=== PATIENT | female | born 1995 | race Caucasian/White ===

== ENCOUNTER 2017-09-21 19:47 | Emergency (ER) | payer OTHER ==
[2017-09-21] MEDS: NS 0.9% 1000 ML* 2,000 ML IV ONE ×2 (20:32→22:33)
--- NOTE | 2017-09-21 20:33 | RAD ---
INDICATION: Cough. COMPARISON: There are no prior studies available for comparison. TECHNIQUE: Dual-energy PA and lateral views of the chest were obtained. FINDINGS: The heart is within normal limits in size. Mediastinal and hilar contours appear within normal limits. The lungs are clear. No pleural effusion is present. IMPRESSION: NO EVIDENCE FOR ACTIVE CARDIOPULMONARY DISEASE.
[2017-09-21 20:51] LABS: ABS Basophils 0 10^3/ul (0-0.2); ABS Eosinophils 0 10^3/ul (0-0.6); ABS Neutrophils 3.9 10^3/ul (1.5-7.7); ABS Nucleated RBC 0 10^3/ul; Eosinophil % 0.2 % (0-6); Hematocrit 41 % (35-47); Lymphocyte % 16.9 % (25-47); Mean Corpuscular HGB Conc 34 g/dl (31-36); Mean Corpuscular Hemoglobin 28 pg (27-31); Mean Corpuscular Volume 83 fL (80-97); Mean Platelet Volume 8 um3 (7.4-10.4); Nucleated Red Blood Cells % 0.1; Platelet Count 282 10^3/ul (150-450); Red Cell Distribution Width 13 % (10.5-15); White Blood Count 5.9 10^3/ul (3.5-10.8)
--- NOTE | 2017-09-21 20:54 | ED ---
Influenza-Like Illness - HPI Summary HPI Summary: 21-year-old female presents with fever since yesterday. She states she has been having cough for the past 5 days. She admits to headache and generalized body aches. She denies any neck stiffness. She denies any photophobia. She admits to dizziness. She is no blurry vision. She has been taking ibuprofen and Tylenol for her pain. She states to shortness of breath but denies chest pain. She has no history of respiratory illness. She denies any nausea or vomiting. She denies any abdominal pain. She was seen at [facility] and they gave her oral fluids and doxycycline. This transferred her here due to vitals. - History of Current Complaint Chief Complaint: EDFever Time Seen by Provider: 09/21/17 19:58 - Allergy/Home Medications Allergies/Adverse Reactions: Allergies Allergy/AdvReac Type Severity Reaction Status Date / Time iodine Allergy See Comment Uncoded 09/21/17 21:35 PMH/Surg Hx/FS Hx/Imm Hx Endocrine/Hematology History: Denies: Hx Anticoagulant Therapy Respiratory History: Reports: Other Respiratory Problems/Disorders - PNA Denies: Hx Asthma Infectious Disease History: No Infectious Disease History: Denies: Traveled Outside the [place] in Last 30 Days - Family History Known Family History: Negative: Respiratory Disease - Social History Alcohol Use: None Substance Use Type: Reports: None Smoking Status (MU): Never Smoked Tobacco Review of Systems Positive: Fever, Chills, Fatigue Positive: Sore Throat, Nasal Discharge Negative: Chest Pain Positive: Shortness Of Breath, Cough Negative: Abdominal Pain All Other Systems Reviewed And Are Negative: Yes Physical Exam Triage Information Reviewed: Yes Vital Signs On Initial Exam: Initial Vitals BP 130/80 09/21/17 20:09 Vital Signs Reviewed: Yes Appearance: Positive: Ill-Appearing - nontoxic Skin: Positive: Warm, Dry Head/Face: Positive: Normal Head/Face Inspection Eyes: Positive: Normal, EOMI, DARSHANA, Conjunctiva Clear ENT: Positive: Normal ENT inspection, Pharyngeal erythema, TMs normal, Tonsillar swelling, Uvula midline, Other - soft palate symmetric. Negative: Tonsillar exudate, Trismus, Muffled voice Neck: Positive: Supple, Nontender, No Lymphadenopathy. Negative: Nuchal Rigidity Respiratory/Lung Sounds: Positive: Clear to Auscultation, Breath Sounds Present Cardiovascular: Positive: Normal, RRR Abdomen Description: Positive: Nontender, Soft Bowel Sounds: Positive: Present Musculoskeletal: Positive: Normal Neurological: Positive: Normal Psychiatric: Positive: Normal Diagnostics - Vital Signs Vital Signs Temp Pulse Resp BP Pulse Ox 09/21/17 20:26 120/83 09/21/17 20:20 121 23 96 09/21/17 20:10 97.8 F 135 17 127/64 98 09/21/17 20:09 130/80 - Laboratory Result Diagrams: 09/21/17 20:34 09/21/17 20:34 Lab Statement: Any lab studies that have been ordered have been reviewed, and results considered in the medical decision making process. - Radiology chest Xray Interpretation: No Acute Changes Radiology Interpretation Completed By: Radiologist Flu Symptom Course/Dx - Course Course Of Treatment: 21-year-old female presents with fever since yesterday. She states she has been having cough for the past 5 days. She admits to headache and generalized body aches. She denies any neck stiffness. She denies any photophobia. She admits to dizziness. She is no blurry vision. She has been taking ibuprofen and Tylenol for her pain. She states to shortness of breath but denies chest pain. She has no history of respiratory illness. She denies any nausea or vomiting. She denies any abdominal pain. She was seen at [facility] and they gave her oral fluids and doxycycline. This transferred her here due to vitals. On exam lungs clear to auscultation. Tachycardic. Hearing is air in the abdomen is with +1 tonsils without exudate. Uvula is midline. Soft palate symmetric. Abdomen soft nontender. Strep negative. Labs within normal limits. Gave 3 liters of fluid the patient feeling better. Patient is still slightly tachycardic but this is likely due to patient likely having the flu. Chest x-ray normal. Discharge with decadron for sore throat. Told to continue Tylenol or ibuprofen. Patient understands and agrees. - Diagnoses Differential Diagnosis/HQI/PQRI: Positive: Influenza, Pneumonia, Other - strept Provider Diagnoses: Febrile illness Discharge - Discharge Plan Condition: Good Disposition: HOME Prescriptions: Dexamethasone TAB* [Decadron TAB*] 4 mg PO DAILY #4 tab Magic Mouth Was-CARMEL/MAAL/LIDO* 5 ml SWISH SPIT QID #100 ml Patient Education Materials: Influenza (ED) Forms: *School Release Referrals: [facility] - Clint MEZA [Primary Care Provider] - Additional Instructions: symptoms like due to the flu Magic mouthwash 5ml swish and spit can use 4x a day Take steroid once a day for 4 days Take Tylenol or ibuprofen for pain/fever every 6 hours Use saline spray in nose as much as needed for nasal congestion Use humidifier in room or can use warm water in bowls for cough Can gargle salt water Can use cough drops or products such as cloraseptic spray Return to ED if develop any new or worsening symptoms
[2017-09-21 21:25] LABS: EGFR Non-African American 104.3 (>60)
[2017-09-21] MEDS ORDERED: Dexamethasone TAB* 4 MG PO ONE (21:57)
[2017-09-21] MEDS ORDERED: NS 0.9% 1000 ML* 1,000 ML IV ONE (21:57)
[2017-09-21 23:47] VITALS: BP 130/80
== END 2017-09-21 23:47 | disposition home or self-care (01) ==
LOC: ED 19:47
DX: R50.9 Fever, unspecified (principal); Z88.8 Allergy status to other drugs, medicaments and biological substances
CPT/HCPCS: 36415; 71046; 80053; 85025; 87651; 96360; 96361; 99283; J8540

== ENCOUNTER 2017-09-23 04:21 | Emergency (ER) | payer OTHER ==
[2017-09-23] MEDS ORDERED: Ondansetron INJ* 2 MG/ML VIAL IV ONE (05:03)
[2017-09-23] MEDS ORDERED: Ketorolac INJ* 30 MG/ML 1 ML VIAL IV ONE (05:03)
[2017-09-23 05:33] LABS: ABS Basophils 0 10^3/ul (0-0.2); ABS Eosinophils 0 10^3/ul (0-0.6); ABS Lymphocytes 0.9 10^3/ul (1.0-4.8); ABS Monocytes 0.8 10^3/ul (0-0.8); ABS Neutrophils 4.5 10^3/ul (1.5-7.7); ABS Nucleated RBC 0 10^3/ul; Eosinophil % 0 % (0-6); Hematocrit 39 % (35-47); Hemoglobin 13.2 g/dl (12.0-16.0); Mean Corpuscular HGB Conc 34 g/dl (31-36); Mean Corpuscular Hemoglobin 28 pg (27-31); Mean Corpuscular Volume 82 fL (80-97); Mean Platelet Volume 8 um3 (7.4-10.4); Nucleated Red Blood Cells % 0; Platelet Count 296 10^3/ul (150-450); Red Blood Count 4.69 10^6/ul (4.0-5.4); Red Cell Distribution Width 13 % (10.5-15); White Blood Count 6.3 10^3/ul (3.5-10.8)
[2017-09-23] MEDS: NS 0.9% 1000 ML* 3,000 ML IV ONE ×2 (05:44→06:14)
[2017-09-23 05:55] LABS: INR 1.05 (0.77-1.02)
[2017-09-23 05:56] LABS: EGFR Non-African American 128.8 (>60)
--- NOTE | 2017-09-23 07:11 | ED ---
Elif Whitmore Thomas, scribed for Davin Rodríguez MD on 09/23/17 at 0457 . Complex/Multi-Sys Presentation - HPI Summary HPI Summary: The patient is a 21 year old female presenting with nausea, vomiting, diarrhea, shortness of breath, lightheadedness, blurry vision, and shakiness that began tonight. She was evaluated at [facility] ED yesterday with flu-like symptoms, including a headache, neck pain, and body aches. She has been taking the Decadron, Peptobismol, and magic mouth wash prescribed yesterday. - History Of Current Complaint Chief Complaint: EDNauseaVomitDiarrh Time Seen by Provider: 09/23/17 04:44 Hx Obtained From: Patient Onset/Duration: Still Present Timing: Constant Severity Currently: Moderate Severity Initially: Moderate Aggravating Factor(s): None Alleviating Factor(s): Prescribed meds Associated Signs And Symptoms: Positive: Other - nausea, vomiting, diarrhea, shortness of breath, lightheadedness, blurry vision, shakiness, headache, neck pain, and body aches - Allergies/Home Medications Allergies/Adverse Reactions: Allergies Allergy/AdvReac Type Severity Reaction Status Date / Time garlic Allergy Unknown Hives Verified 09/23/17 06:22 Iodinated Contrast- Oral and Allergy Unknown Unknown Verified 09/23/17 06:19 IV Dye Reaction Details iodine Allergy Unknown See Comment Verified 09/23/17 06:19 lactose Allergy Unknown GI Upset Verified 09/23/17 06:22 Latex, Natural Rubber Allergy Unknown Hives Verified 09/23/17 06:19 lidocaine Allergy Unknown Anaphylatic Verified 09/23/17 06:19 Shock red dye AdvReac Unknown Dizziness Verified 09/23/17 06:19 PMH/Surg Hx/FS Hx/Imm Hx Endocrine/Hematology History: Denies: Hx Anticoagulant Therapy Respiratory History: Reports: Other Respiratory Problems/Disorders - PNA Denies: Hx Asthma Infectious Disease History: No Infectious Disease History: Denies: Traveled Outside the [place] in Last 30 Days - Family History Known Family History: Negative: Respiratory Disease - Social History Occupation: Student Alcohol Use: None Substance Use Type: Reports: None Smoking Status (MU): Never Smoked Tobacco Review of Systems Positive: Other - Lightheadedness. Negative: Fever Positive: Blurred Vision Positive: Shortness Of Breath Positive: Vomiting, Diarrhea, Nausea Positive: Other - Neck pain Neurological: Other - Shakiness Positive: Headache All Other Systems Reviewed And Are Negative: Yes Physical Exam - Summary Physical Exam Summary: General: moderately ill-appearing, no pain distress Skin: warm, color reflects adequate perfusion, dry Head: normal Eyes: EOMI, DARSHANA ENT: Dry oral mucosa. Neck: supple, nontender Respiratory: CTA, breath sounds present Cardiovascular: Tachycardia. Regular rhythm Abdomen: soft, nontender Bowel: present Musculoskeletal: normal, strength/ROM intact Neurological: normal, sensory/motor intact, A&O x3 Psychological: affect/mood appropriate Triage Information Reviewed: Yes Vital Signs On Initial Exam: Initial Vitals Temp Pulse Resp BP Pulse Ox 97.7 F 111 16 137/75 96 09/23/17 04:23 09/23/17 04:23 09/23/17 04:23 09/23/17 04:23 09/23/17 04:23 Vital Signs Reviewed: Yes Diagnostics - Vital Signs Vital Signs Temp Pulse Resp BP Pulse Ox 09/23/17 04:41 106 95 09/23/17 04:39 131/80 09/23/17 04:23 97.7 F 111 16 137/75 96 - Laboratory Lab Results: Lab Results 09/23/17 09/23/17 09/23/17 Range/Units 05:20 05:20 05:20 WBC 6.3 (3.5-10.8) 10^3/ul RBC 4.69 (4.0-5.4) 10^6/ul Hgb 13.2 (12.0-16.0) g/dl Hct 39 (35-47) % MCV 82 (80-97) fL MCH 28 (27-31) pg MCHC 34 (31-36) g/dl RDW 13 (10.5-15) % Plt Count 296 (150-450) 10^3/ul MPV 8 (7.4-10.4) um3 Neut % (Auto) 71.2 (38-83) % Lymph % (Auto) 15.0 L (25-47) % [place] % (Auto) 13.4 H (1-9) % Eos % (Auto) 0 (0-6) % Baso % (Auto) 0.4 (0-2) % Absolute Neuts (auto) 4.5 (1.5-7.7) 10^3/ul Absolute Lymphs (auto) 0.9 L (1.0-4.8) 10^3/ul Absolute Monos (auto) 0.8 (0-0.8) 10^3/ul Absolute Eos (auto) 0 (0-0.6) 10^3/ul Absolute Basos (auto) 0 (0-0.2) 10^3/ul Absolute Nucleated RBC 0 10^3/ul Nucleated RBC % 0 INR (Anticoag Therapy) 1.05 H (0.77-1.02) Sodium 137 (133-145) mmol/L Potassium 4.0 (3.5-5.0) mmol/L Chloride 105 (101-111) mmol/L Carbon Dioxide 24 (22-32) mmol/L Anion Gap 8 (2-11) mmol/L BUN 12 (6-24) mg/dL Creatinine 0.60 (0.51-0.95) mg/dL Est GFR ( Amer) 165.6 (>60) Est GFR (Non-Af Amer) 128.8 (>60) BUN/Creatinine Ratio 20.0 (8-20) Glucose 113 H (70-100) mg/dL Lactic Acid (0.5-2.0) mmol/L Calcium 9.2 (8.6-10.3) mg/dL Total Bilirubin 0.30 (0.2-1.0) mg/dL AST 19 (13-39) U/L ALT 17 (7-52) U/L Alkaline Phosphatase 62 (34-104) U/L C-Reactive Protein 22.93 H (< 5.00) mg/L Total Protein 7.2 (6.4-8.9) g/dL Albumin 4.4 (3.2-5.2) g/dL Globulin 2.8 (2-4) g/dL Albumin/Globulin Ratio 1.6 (1-3) Lipase 49 (11.0-82.0) U/L Beta HCG, Quant < 0.60 mIU/mL Influenza A (Rapid) (Negative) Influenza B (Rapid) (Negative) 09/23/17 09/23/17 Range/Units 05:20 05:35 WBC (3.5-10.8) 10^3/ul RBC (4.0-5.4) 10^6/ul Hgb (12.0-16.0) g/dl Hct (35-47) % MCV (80-97) fL MCH (27-31) pg MCHC (31-36) g/dl RDW (10.5-15) % Plt Count (150-450) 10^3/ul MPV (7.4-10.4) um3 Neut % (Auto) (38-83) % Lymph % (Auto) (25-47) % [place] % (Auto) (1-9) % Eos % (Auto) (0-6) % Baso % (Auto) (0-2) % Absolute Neuts (auto) (1.5-7.7) 10^3/ul Absolute Lymphs (auto) (1.0-4.8) 10^3/ul Absolute Monos (auto) (0-0.8) 10^3/ul Absolute Eos (auto) (0-0.6) 10^3/ul Absolute Basos (auto) (0-0.2) 10^3/ul Absolute Nucleated RBC 10^3/ul Nucleated RBC % INR (Anticoag Therapy) (0.77-1.02) Sodium (133-145) mmol/L Potassium (3.5-5.0) mmol/L Chloride (101-111) mmol/L Carbon Dioxide (22-32) mmol/L Anion Gap (2-11) mmol/L BUN (6-24) mg/dL Creatinine (0.51-0.95) mg/dL Est GFR ( Amer) (>60) Est GFR (Non-Af Amer) (>60) BUN/Creatinine Ratio (8-20) Glucose (70-100) mg/dL Lactic Acid 0.7 (0.5-2.0) mmol/L Calcium (8.6-10.3) mg/dL Total Bilirubin (0.2-1.0) mg/dL AST (13-39) U/L ALT (7-52) U/L Alkaline Phosphatase (34-104) U/L C-Reactive Protein (< 5.00) mg/L Total Protein (6.4-8.9) g/dL Albumin (3.2-5.2) g/dL Globulin (2-4) g/dL Albumin/Globulin Ratio (1-3) Lipase (11.0-82.0) U/L Beta HCG, Quant mIU/mL Influenza A (Rapid) Negative (Negative) Influenza B (Rapid) Positive H (Negative) Result Diagrams: 09/23/17 05:20 09/23/17 05:20 Lab Statement: Any lab studies that have been ordered have been reviewed, and results considered in the medical decision making process. Complex Multi-Symp Course/Dx Assessment/Plan: Medications reviewed. BP noted and patient urged primary care follow-up. Allergies noted. IMPROVED IN ED. F/U [facility]; RETURN IF WORSE. - Diagnoses Provider Diagnoses: Elevated BP without diagnosis of hypertension, Influenza Discharge - Discharge Plan Condition: Stable Disposition: HOME Prescriptions: Ondansetron ODT TAB* [Zofran 4 MG Odt TAB*] 4 mg PO Q6H PRN #10 tab.odt PRN Reason: Nausea Oseltamivir CAP* [Tamiflu CAP*] 75 mg PO BID #10 cap Patient Education Materials: Influenza (ED) Referrals: [facility] - Clint MEZA [Primary Care Provider] - Additional Instructions: FOLLOW UP WITH [facility]. RETURN TO THE EMERGENCY DEPARTMENT FOR ANY WORSENING OF YOUR CONDITION OR QUESTIONS OR CONCERNS. The documentation as recorded by the Elif loaiza Thomas accurately reflects the service I personally performed and the decisions made by me, Davin Rodríguez MD.
[2017-09-23 07:45] LABS: Urine Appearance Clear; Urine Blood Negative (Negative); Urine Color Straw; Urine Ketones Negative (Negative); Urine Protein Negative (Negative); Urine Specific Gravity 1.005 (1.010-1.030); Urine Urobilinogen Negative (Negative)
[2017-09-23 09:28] VITALS: BP 129/76
== END 2017-09-23 09:36 | disposition home or self-care (01) ==
LOC: ED 04:21
DX: J11.1 Influenza due to unidentified influenza virus with other respiratory manifestations (principal); R03.0 Elevated blood-pressure reading, without diagnosis of hypertension
CPT/HCPCS: 36415; 80053; 81003; 83605; 83690; 84702; 85025; 85610; 86140; 87502; 96374; 96375; 96376; 99283; J1885; J2405